=== PATIENT | female | born 1990 | race Caucasian/White ===

== ENCOUNTER 2024-07-23 02:29 | Emergency (ER) | payer OTHER, SELFPAY ==
[2024-07-23 02:31] VITALS: BP 128/88
--- NOTE | 2024-07-23 02:50 | ED.GENMED ---
History of Present Illness
General
Chief Complaint: Breathing Problem
Source: patient and family
Exam Limitations: none
Time Seen by Provider: 07/23/24 02:37
Nursing documentation reviewed up to this point in time: agreed with
History of Present Illness
History of Present Illness:
Pleasant 33-year-old female presents emergency department with difficulty breathing. She states that she went to bed this evening and awakened with shortness of breath. She states that she took a nebulizer treatment which helped her breathing
symptoms. Patient states that prior to going to bed she had another episode of similar dyspnea. That resolved on its own. Patient denies fever, chest pain, abdominal pain, headache, nausea, vomiting, dizziness or any other symptoms. Patient
attributes this difficulty breathing to her three-quarter per day smoking habit. Denies any recent travel. Denies any hormone. Reports no musculoskeletal tenderness to palpation
Past History
Past History
ED Past Medical History: None
ED Past Surgical History: None
Social History
Tobacco: Smoker
Personal: Single
Review of Systems
Review of Systems
Allergies reviewed?: Yes
Other source history: family
All Other Systems: ROS reviewed and negative except as documented in HPI and ROS
Constitutional: Reports no symptoms
EENT: Reports no symptoms
Respiratory: Reports trouble breathing
Cardiac: Denies chest pain or palpitations
ABD/GI: Reports no symptoms
: Reports no symptoms
Musculoskeletal: Reports no symptoms
Skin: Reports no symptoms
Neurological: Reports no symptoms
Endocrine: Reports no symptoms
Hematologic/Lymphatic: Reports no symptoms
Psychiatric: Reports no symptoms
Phy Exam
General Physical Exam
General Presentation: well appearing and no apparent distress
General Skin: warm and dry
General Habitus: normal
General Mental: alert
General Hydration: appears well hydrated
ENT Exam
ENT Exam: EOMI, pharynx normal, neck supple and normocephalic
Eye Exam
Eye Exam: PERRL, cornea clear and conjunctiva normal
Cardiovascular Exam
Cardiovascular Exam: regular rate/rhythm, no edema, no murmur and normal peripheral pulses
Pulmonary Exam
Pulmonary Exam: lungs clear, no respiratory distress, no rales, no crackles, no rhonchi, no stridor, no wheezing and no cough
Gastrointestinal Exam
Gastrointestinal Exam: normal bowel sounds, non tender, soft, no organomegaly, no pulsatile mass and non distended
Neurological Exam
Neurological Exam: alert, oriented x3, no motor deficits and speech normal
Musculoskeletal Exam
Musculoskeletal Exam: full ROM and no edema
Skin Exam
Skin Exam: normal color, warm/dry, no rash and no petechia
Psychiatric Exam
Psychiatric Exam: normal mood/affect
Scores
PE Wells Score
Symptoms of DVT: No
No alternative diagnosis better explains the illness: No
Tachycardia with pulse > 100: No
Immobilization (>=3 days) or surgery within previous 4 weeks: No
Prior history of DVT or pulmonary embolism: No
Presence of hemoptysis: No
Presence of malignancy: No
Pulmonary Embolism Risk Score: 0
Probability of PE: Pt is low risk
Course
Orders/Labs/Results
Orders:
Orders
07/23/24 02:48
Test Result ONCE
07/23/24 02:53
Complete Blood Count/With Diff Urgent
Comprehensive Metabolic Panel Urgent
D-Dimer Urgent
HCG, Serum Qualitative Screen Urgent
PTT Urgent
Prothrombin Time Urgent
Troponin I Urgent
07/23/24 04:07
CR Chest - 2 Views Urgent
Comment:
Reason For Exam: dyspnea
07/23/24 05:19
Ipratropium/Albuterol Sulfate [Duoneb] 3 ml INH R NOW ONE
07/23/24 05:20
Dexamethasone Pf [Decadron] 10 mg PO NOW STA
Abnormal Lab Results
07/23/24
02:53
MCH 31.5 H pg
(27.0-31.0)
Neutrophils % 33.7 L %
(42.2-75.2)
Monocytes % 10.2 H %
(1.7-9.3)
Eosinophils % 12.1 H %
(0-6)
Chloride 109 H mmol/L
(98-107)
07/23/24 02:53
07/23/24 02:53
Vital Signs
Initial and Last Documented VS:
Initial Vital Signs
Temp Pulse Resp BP Pulse Ox
97.6 F 58 18 128/88 100
07/23/24 02:31 07/23/24 02:31 07/23/24 02:31 07/23/24 02:31 07/23/24 02:31
Last Documented Vital Signs
Temp Pulse Resp BP Pulse Ox
97.6 F 56 13 105/72 98
07/23/24 02:31 07/23/24 05:00 07/23/24 05:00 07/23/24 05:00 07/23/24 05:00
*Critical Care Note
Total Time (30-74mins, 75-104mins- exclusive of procedures): Not Applicable
ED Attending Note
-
Portions of this chart may have been created with voice recognition software.� Occasional wrong word or��sound alike� substitutions may have occurred due to the inherent limitations of voice recognition software.
Discharge Plan
Departure
Patient Disposition: Home (Routine Discharge)
Date of Disposition: 07/23/24
Time of Disposition: 05:51
Patient with high blood pressure during this ER visit?: Yes
Condition: Fair
Discharge Problem:
Bronchitis
Instructions: Bronchitis in adults - ED discharge instructions
Prescriptions:
No Action
ketorolac 10 MG tablet
10 mg PO Q6HPRN PRN (Reason: pain) Qty: 20 0RF
Referrals:
UNKNOWN - PT DOES,NOT KNOW [Unknown Provider] -
Interventions
Interventions:
*Risk Screen - Suicide Last Done: 07/23/24 02:31
*General Assessment Last Done: 07/23/24 03:06
*Neglect/Abuse Screening Last Done: 07/23/24 02:31
*ED- Fall Risk Assessment Last Done: 07/23/24 03:06
*ED COVID-19 Vaccine History Last Done: 07/23/24 03:06
ED- Cardiac Assessment Last Done: 07/23/24 03:06
ED- Pulmonary Assessment Last Done: 07/23/24 03:06
Discharge Date and Time
Print Language: LATVIAN
[2024-07-23 03:04] VITALS: BP 114/75
[2024-07-23 03:05] VITALS: BMI 28.6
[2024-07-23 03:18] LABS: % Basophils 1.3 % (0-2); % Eosinophils 12.1 % (0-6); % Immature Granulocytes 0.2 % (0-0.5); % Lymphocytes 42.5 % (20.5-51.1); % Monocytes 10.2 % (1.7-9.3); % Neutrophils 33.7 % (42.2-75.2); Absolute Basophils 0.1 10^3/uL (0-0.2); Absolute Eosinophils 0.6 10^3/uL (0-0.7); Absolute Monocytes 0.5 10^3/uL (0.1-0.6); Absolute Neutrophils 1.6 10^3/uL (1.4-6.5); Hematocrit 41.1 % (37.0-47.0); Hemoglobin 14.4 g/dL (12.0-16.0); Mean Corpuscular Hgb 31.5 pg (27.0-31.0); Mean Corpuscular Volume 89.9 fL (81.0-99.0); Mean Platelet Volume 9.2 fL (7.4-10.4); Nucleated Red Blood Cells % 0 %; Platelet Count 272 10^3/uL (130-400); Red Blood Cell Count 4.57 10^6/uL (4.20-5.40); Red Cell Dist. Width 11.9 % (11.5-14.5); White Blood Cell Count 4.8 10^3/uL (4.8-10.8)
[2024-07-23 03:29] LABS: INR 0.81; PT 11.5 Sec (11.4-14.6)
[2024-07-23 03:30] LABS: APTT 29.8 Sec (23.4-35.0)
[2024-07-23 03:39] LABS: D-Dimer < 0.27 ug/mlFEU (0.00-0.50); HCG, Serum Qualitative Screen Negative
[2024-07-23 03:44] LABS: Troponin I 0.013 ng/ml
[2024-07-23 03:45] LABS: ALT (SGPT) 21 U/L (0-35); AST (SGOT) 24 U/L (14-36); Albumin 4.6 g/dl (3.5-5.0); Alkaline Phosphatase 74 U/L (38-126); Blood Urea Nitrogen 14 mg/dl (7-17); Calcium 9.5 mg/dl (8.4-10.2); Carbon Dioxide 24 mmol/L (22-30); Chloride 109 mmol/L (98-107); Estimated Creatinine Clearance 103 ml/min; Glucose 94 mg/dl (70-99); Potassium 4.1 mmol/L (3.5-5.1); Sodium 141 mmol/L (135-145); Total Bilirubin 0.4 mg/dl (0.2-1.3); eGFR > 60.00
[2024-07-23 04:00] VITALS: BP 101/78
[2024-07-23 05:00] VITALS: BP 105/72
[2024-07-23] MEDS: DECADRON 10 MG PO (05:30)
[2024-07-23] MEDS: DUONEB 3 ML INH (05:30)
== END 2024-07-23 06:10 | disposition home or self-care (01) ==
LOC: EMR 02:29
PROVIDERS: EMERGENCY PHYSICIAN Student in an Organized Health Care Education/Training Program; FAMILY PHYSICIAN Nurse Practitioner
DX: J40 Bronchitis, not specified as acute or chronic (principal); F17.200 Nicotine dependence, unspecified, uncomplicated; R03.0 Elevated blood-pressure reading, without diagnosis of hypertension
CPT/HCPCS: 99284; 94640; 71046; 80053; 84484; 84703; 85025; 85379; 85610; 85730